=== PATIENT | male | born 1975 | race Caucasian/White ===

== ENCOUNTER 2019-05-21 09:57 | Emergency (ER) | payer SELFPAY ==
[~2019-05-21] VITALS: Ht 185.4 cm; Wt 99.8 kg
[2019-05-21 10:16] VITALS: BP 117/78
== END 2019-05-21 10:49 | disposition home or self-care (01) ==
LOC: ER 09:57
DX: G47.00 Insomnia, unspecified (principal); F17.210 Nicotine dependence, cigarettes, uncomplicated